=== PATIENT | female | born 1965 | race Caucasian/White ===

== ENCOUNTER 2018-10-22 15:25 | Outpatient (CLI) | payer OTHER | END 2018-10-22 20:47 | disposition home or self-care (01) | LOC: SMA 15:25 | PROVIDERS: ATTEND Family Medicine | DX: Z12.31 Encounter for screening mammogram for malignant neoplasm of breast (principal) | CPT/HCPCS: 77067 ==

== ENCOUNTER 2020-06-07 14:51 | Outpatient (CLI) | payer OTHER | END 2020-06-07 20:23 | disposition home or self-care (01) | LOC: SMA 14:51 | PROVIDERS: ATTEND Family Medicine | DX: Z12.31 Encounter for screening mammogram for malignant neoplasm of breast (principal) | CPT/HCPCS: 77067 ==